=== PATIENT | male | born 1950 | race Hispanic/Latino ===

== ENCOUNTER → 2017-08-12 | Day surgery (SDC) | payer MEDICARE, OTHER ==
[2017-08-09 10:58] LABS: BASOPHILS # (AUTO) 0.1 (0.0-0.1); BASOPHILS % 0.9 % (0.0-1.0); EOSINOPHILS # (AUTO) 0.3 (0.0-0.4); EOSINOPHILS % 3.7 % (0.0-6.0); HEMATOCRIT 40.8 % (38.2-49.6); HEMOGLOBIN 13.8 g/dL (14.0-18.0); LYMPHOCYTES # (AUTO) 2.2 (1.0-3.2); LYMPHOCYTES % 28.4 % (18.0-39.1); MEAN CORPUSCULAR HEMOGLOBIN 31.4 pg (28-32); MEAN CORPUSCULAR HGB CONC 33.8 g/dL (31-35); MEAN CORPUSCULAR VOLUME 92.7 fL (81-99); MONOCYTES # (AUTO) 0.8 (0.2-0.8); MONOCYTES % 10.4 % (4.4-11.3); NEUTROPHILS # (AUTO) 4.3 (2.1-6.9); NEUTROPHILS % 56.1 % (38.7-80.0); PLATELET COUNT 248 x10e3/uL (140-360); RED CELL DISTRIBUTION WIDTH 12.6 % (11.7-14.4)
[~2017-08-12] MED LIST: ALLOPURINOL PO; AMLODIPINE BESY10 MG PO; CARVEDILOL25 MG PO; HYZAAR 100-251 EACH PO; PROPOFOL IV EMULSION 10 MG/ML 50 ML VIAL ONE; TRIBENZOR PO
== END | disposition home or self-care (01) ==
LOC: OR 07:32
PROVIDERS: ATTEND Internal Medicine Gastroenterology
DX: Z12.11 Encounter for screening for malignant neoplasm of colon (principal); D12.3 Benign neoplasm of transverse colon; D12.8 Benign neoplasm of rectum; K57.30 Diverticulosis of large intestine without perforation or abscess without bleeding; K64.8 Other hemorrhoids; I10 Essential (primary) hypertension; E66.01 Morbid (severe) obesity due to excess calories; Z01.810 Encounter for preprocedural cardiovascular examination; Z01.812 Encounter for preprocedural laboratory examination; Z68.41 Body mass index [BMI] 40.0-44.9, adult
CPT/HCPCS: 36415; 45384; 45385; 85025; 88305; 93005

== ENCOUNTER → 2017-09-30 | Day surgery (SDC) | payer MEDICARE, OTHER ==
[2017-09-28 11:24] LABS: BASOPHILS # (AUTO) 0.1 (0.0-0.1); BASOPHILS % 0.7 % (0.0-1.0); EOSINOPHILS # (AUTO) 0.3 (0.0-0.4); EOSINOPHILS % 2.9 % (0.0-6.0); HEMATOCRIT 43.5 % (38.2-49.6); HEMOGLOBIN 14.4 g/dL (14.0-18.0); LYMPHOCYTES # (AUTO) 2.1 (1.0-3.2); LYMPHOCYTES % 24.1 % (18.0-39.1); MEAN CORPUSCULAR HEMOGLOBIN 31.5 pg (28-32); MEAN CORPUSCULAR HGB CONC 33.1 g/dL (31-35); MEAN CORPUSCULAR VOLUME 95.2 fL (81-99); MONOCYTES # (AUTO) 0.9 (0.2-0.8); MONOCYTES % 10.8 % (4.4-11.3); NEUTROPHILS # (AUTO) 5.3 (2.1-6.9); PLATELET COUNT 239 x10e3/uL (140-360); RED BLOOD COUNT 4.57 x10e6/uL (4.3-5.7); RED CELL DISTRIBUTION WIDTH 13.2 % (11.7-14.4)
[2017-09-28 11:35] LABS: INR 0.94
[2017-09-28 11:36] LABS: PARTIAL THROMBOPLASTIN TIME 28.3 seconds (23.8-35.5)
[2017-09-28 11:40] LABS: BLOOD UREA NITROGEN 17 mg/dL (7-26); BUN/CREATININE RATIO 15 (6-25); CALCIUM 9.4 mg/dL (8.4-10.2); CARBON DIOXIDE 28 mmol/L (22-29); CHLORIDE 104 mmol/L (98-107); EST GLOMERULAR FILTRATION RATE > 60 ML/MIN (60-); GLUCOSE 117 mg/dL (74-118); SODIUM 140 mmol/L (136-145)
--- NOTE | 2017-09-28 13:13 | Diagnostic Imaging Report ---
PROCEDURE: Frontal and lateral views of the chest. COMPARISON: Chest 2 views 07/17/2013. INDICATIONS: PRE OPERATIVE CHEST X-RAY FOR CARPAL TUNNEL SURGER FINDINGS: Lines/tubes: None. Lungs: The lungs are well inflated and clear. There is no evidence of pneumonia or pulmonary edema. Pleura: There is no pleural effusion or pneumothorax. Heart and mediastinum: The heart and the mediastinum are normal. Bones: No acute bony abnormality. Degenerative changes of the thoracic spine. IMPRESSION: No acute radiographic abnormality. Dictated by: Hank De León M.D. on 09/28/2017 at 13:23 Electronically approved by: Hank De León M.D. on 09/28/2017 at 13:23
[~2017-09-30] MED LIST changes: +ASPIR 8181 MG PO; +BUPIVACAINE HCL 0.5% INJ 30 ML VIAL INJ ONE; +CEFAZOLIN SOD 2 GM/D5W 50ML 50 ML IV ONE; +EPHEDRINE SULFATE INJ 50 MG/10 ML SYR ONE; +FENTANYL CITRATE/PF 100MCG/2 ML INJ ONE; +LIDOCAINE HCL 2% LOCAL INJ 5 ML SDV VIAL INJ ONE; +MIDAZOLAM HCL 2 MG/2 ML VIAL ONE; +ONDANSETRON HCL INJ 2 MG/ML VIAL ONE
--- OUTSIDE RECORDS SUMMARY | 2017-09-30 06:50 | XMS REPORT ---
Author Author [facility] Address Unknown Phone Unavailable Care Team Providers Care Knowledge Manager Name Role Phone CAIN ARANA Unavailable Unavailable Problems This patient has no known problems. Allergies, Adverse Reactions, Alerts This patient has no known allergies or adverse reactions. Medications This patient has no known medications. Results Test Description Test Time Test Comments Text Results Atomic Results Result Comments CHEST 2 VIEWS [place] [address] Patient Name: ROGER GARCIA MR #: [id number] : 1950 Age/Sex: 67/M Req #: [id number] Adm Physician: Ordered by: CAIN ARANA MD Report #: [id number] Location: OR Room/Bed: Procedure: [id number] DX/CHEST 2 VIEWS Exam Date: 09/28/17 Exam Time: 1120 REPORT STATUS: Signed PROCEDURE: Frontal and lateral views of the chest. COMPARISON: Chest 2 views 07/17/2013. INDICATIONS: PRE OPERATIVE CHEST X-RAY FOR CARPAL TUNNEL SURGER FINDINGS: Lines/tubes : None. Lungs: The lungs are well inflated and clear. There is no evidence of pneumonia or pulmonary edema. Pleura: There is no pleural effusion or pneumothorax. Heart and mediastinum: The heart and the mediastinum are normal. Bones: No acute bony abnormality. Degenerative changes of the thoracic spine. IMPRESSION: No acute radiographic abnormality. Dictated by: Evan Chase M.D. on 09/28/2017 at 13:23 Electronically approved by: Evan Chase M.D. on 09/28/2017 at 13: 23 Dictated By: EVAN CHASE MD [id number] Transcribed By: KELLEY on 09/28/17 1323 COPY TO : CAIN ARANA MD
--- NOTE | 2017-09-30 11:12 | Operative Report ---
DATE OF PROCEDURE: September 30, 2017 PREOPERATIVE DIAGNOSIS: Left carpal tunnel syndrome. POSTOPERATIVE DIAGNOSIS: Left carpal tunnel syndrome. PROCEDURE: Left carpal tunnel release. ANESTHESIA: General. INDICATIONS: Patient is a 67-year-old man who presents with left carpal tunnel syndrome. He was taken to the operating room for left carpal tunnel release. PROCEDURE: After induction of general anesthesia, the patient was placed on the operating table in supine position. The left arm was abducted over a hand table. The left hand, wrist and forearm were prepped and draped circumferentially in sterile fashion. A tourniquet was inflated over the upper arm to 250 mmHg. A small midline incision was created over the median palmar crease of the hand just distal to the distal flexor crease of the wrist. The subcutaneous fat was divided. Transverse carpal ligament was incised with a #15C blade until the underlying median nerve came into view. As the pharmacy technician assistant retracted the skin edges, the transverse carpal ligament was divided proximally and distally until the full length of the median nerve was exposed and decompressed within the carpal tunnel. The point of maximum compression of the nerve appeared to be 3 cm distal to the distal flexor crease of the wrist where the ligament was at its thickest. More distally, the recurrent motor branch of the nerve was preserved within its fat pad. The wound was irrigated with Bacitracin solution and closed with a 3-0 Vicryl suture and 3-0 nylon suture. The hand was wrapped after the tourniquet was deflated. The patient was awakened, extubated and taken to the postanesthesia care unit in stable condition. No intraoperative complications were encountered. Estimated blood loss was minimal. Job#: [id number]
== END | disposition home or self-care (01) ==
LOC: OR 06:48
PROVIDERS: ATTEND Neurological Surgery
DX: G56.02 Carpal tunnel syndrome, left upper limb (principal); E66.01 Morbid (severe) obesity due to excess calories; M10.9 Gout, unspecified; I10 Essential (primary) hypertension; N20.0 Calculus of kidney; E03.9 Hypothyroidism, unspecified; F41.9 Anxiety disorder, unspecified; Z01.812 Encounter for preprocedural laboratory examination; Z01.810 Encounter for preprocedural cardiovascular examination; Z01.818 Encounter for other preprocedural examination; Z79.82 Long term (current) use of aspirin; Z68.41 Body mass index [BMI] 40.0-44.9, adult
CPT/HCPCS: 36415; 64721; 71046; 80048; 85025; 85610; 85730; 93005; J2001; J2250; J2405

== ENCOUNTER → 2017-10-28 | Day surgery (SDC) | payer MEDICARE, OTHER ==
[~2017-10-28] MED LIST changes: +DESFLURANE 240 ML BTL INH ONE; +DEXAMETHASONE SOD PHOS INJ 4 MG/ML VIAL ONE; -EPHEDRINE SULFATE INJ 50 MG/10 ML SYR ONE; +KETOROLAC TROMETHAMINE 30 MG/ML VIAL ONE; +PROPOFOL IV EMULSION 10 MG/ML 20 ML VIAL ONE; -PROPOFOL IV EMULSION 10 MG/ML 50 ML VIAL ONE
--- NOTE | 2017-10-28 12:31 | Operative Report ---
DATE OF PROCEDURE: October 28, 2017 PREOPERATIVE DIAGNOSIS: Right carpal tunnel syndrome. POSTOPERATIVE DIAGNOSIS: Right carpal tunnel syndrome. PROCEDURE: Right carpal tunnel release. ANESTHESIA: General. INDICATIONS: Patient is a 67-year-old man who presents with right carpal tunnel syndrome and was taken to the operating room for right carpal tunnel release. PROCEDURE: After induction of anesthesia, the patient was placed on the operating table in supine position with the right arm abducted over a hand table. The right hand, wrist, and forearm were prepped and draped circumferentially in sterile fashion. A small midline incision was created. A tourniquet was inflated over the upper arm to 250 mmHg. A small midline incision was created over the median and palmar crease of the hand just distal to the distal flexor crease of the wrist. The subcutaneous fat was divided. Transverse carpal ligament was identified and incised with a #15 C-blade until the underlying median nerve came into view. As the assistant customer service manager retracted the skin edges, transverse carpal ligament was divided proximally and distally until the full length of the ligament had been divided within the carpal tunnel and the full length of median nerve was exposed and decompressed. Meticulous hemostasis was secured. The subcutaneous layer was closed with a 3-0 Vicryl suture. The skin was closed with a 3-0 nylon suture in a horizontal mattress fashion. A dressing was applied. The patient was awakened, extubated, and taken to the postanesthesia care unit in stable condition. No intraoperative complications were encountered. Estimated blood loss was minimal. Job#: [id number] VAS
== END | disposition home or self-care (01) ==
LOC: OR 07:32
PROVIDERS: ATTEND Neurological Surgery
DX: G56.01 Carpal tunnel syndrome, right upper limb (principal); E03.9 Hypothyroidism, unspecified; I10 Essential (primary) hypertension; Z68.41 Body mass index [BMI] 40.0-44.9, adult
CPT/HCPCS: 64721; J1100; J1885; J2001; J2250; J2405

== ENCOUNTER → 2021-03-13 | Day surgery (SDC) | payer MEDICARE, OTHER ==
[2021-03-10 10:08] LABS: BASOPHILS # (AUTO) 0.1 (0.0-0.1); BASOPHILS % 0.7 % (0.0-1.0); EOSINOPHILS # (AUTO) 0.3 (0.0-0.4); EOSINOPHILS % 4.1 % (0.0-6.0); HEMOGLOBIN 13.3 g/dL (14.0-18.0); LYMPHOCYTES % 23.8 % (18.0-39.1); MEAN CORPUSCULAR HEMOGLOBIN 31.6 pg (28-32); MEAN CORPUSCULAR HGB CONC 32.4 g/dL (31-35); MEAN CORPUSCULAR VOLUME 97.4 fL (81-99); MONOCYTES # (AUTO) 0.9 (0.2-0.8); MONOCYTES % 10.3 % (4.4-11.3); NEUTROPHILS % 60.6 % (38.7-80.0); PLATELET COUNT 255 x10e3/uL (140-360); RED BLOOD COUNT 4.21 x10e6/uL (4.3-5.7)
[~2021-03-13] MED LIST changes: -BUPIVACAINE HCL 0.5% INJ 30 ML VIAL INJ ONE; -CEFAZOLIN SOD 2 GM/D5W 50ML 50 ML IV ONE; -DESFLURANE 240 ML BTL INH ONE; -DEXAMETHASONE SOD PHOS INJ 4 MG/ML VIAL ONE; +FENOFIBRATE145 MG PO; -FENTANYL CITRATE/PF 100MCG/2 ML INJ ONE; +HYDRALAZINE HCL25 MG PO; -KETOROLAC TROMETHAMINE 30 MG/ML VIAL ONE; -LIDOCAINE HCL 2% LOCAL INJ 5 ML SDV VIAL INJ ONE; -MIDAZOLAM HCL 2 MG/2 ML VIAL ONE; -ONDANSETRON HCL INJ 2 MG/ML VIAL ONE
[2021-03-13 07:25] VITALS: BP 107/89
== END | disposition home or self-care (01) ==
LOC: OR 05:47
PROVIDERS: ATTEND Internal Medicine Gastroenterology
DX: Z09 Encounter for follow-up examination after completed treatment for conditions other than malignant neoplasm (principal); D12.3 Benign neoplasm of transverse colon; D12.4 Benign neoplasm of descending colon; K57.30 Diverticulosis of large intestine without perforation or abscess without bleeding; K64.8 Other hemorrhoids; Z71.3 Dietary counseling and surveillance; I10 Essential (primary) hypertension; E66.01 Morbid (severe) obesity due to excess calories; I45.10 Unspecified right bundle-branch block; M10.9 Gout, unspecified; N20.0 Calculus of kidney; E78.5 Hyperlipidemia, unspecified; Z01.810 Encounter for preprocedural cardiovascular examination; Z01.812 Encounter for preprocedural laboratory examination; Z68.42 Body mass index [BMI] 45.0-49.9, adult
CPT/HCPCS: 36415; 45380; 45385; 85025; 93005; J2704; 45378